=== PATIENT | male | born 1945 | race Caucasian/White ===

== ENCOUNTER → 2016-10-27 | Outpatient (CLI) | payer BC ==
[~2016-10-27] MED LIST: AMOX500C3 PO; ASMIN/60 INH; ASPI81TA28 PO; AZITTAB PO; CHOL1000 PO; COEN1CAP PO; CYAN10005 PO; FAMO20TA9 PO; FLVHFA110 INH; MISC1CAP60 PO; SELE1TAB5 PO; SIMV20TA2 PO
== END | disposition home or self-care (01) ==
LOC: C.LABSPEC 10:55
PROVIDERS: ATTEND Family Medicine
DX: J02.9 Acute pharyngitis, unspecified (principal)

== ENCOUNTER 2016-10-31 20:40 | Emergency (ER) | payer BC ==
[~2016-10-31] VITALS: Ht 177.8 cm; Wt 76.1 kg
[2016-10-31 20:54] VITALS: TEMP 36.7; Ht 177.8 cm; Wt 76.1 kg
[2016-10-31] MEDS ORDERED: CEFTRIAXONE SOD INJ 1 GM ADDVIAL IV STA (21:29)
[2016-10-31] MEDS ORDERED: KETOROLAC TROMETHAMINE 30 MG/ML VIAL IV STA (21:29)
[2016-10-31] MEDS ORDERED: SODIUM CHLORIDE 0.9% 500ML 500 ML IV STA (21:29)
[2016-10-31] MEDS ORDERED: HYDROCODONE/HOMATROPINE SYRUP 5MG/1.5MG 5ML UDP PO STA (21:42)
[2016-10-31 21:51] LABS: BASO % 0.3 %; BASO ABS # 0.03 K/uL (0-0.2); COMPLETE YES; EOS % 1.6 %; HEMATOCRIT 45.4 % (42-52); IG% 0.3 %; LYMPH % 26.7 %; MEAN CELL VOLUME 90.1 fL (80-100); MEAN CORPUSCULAR HEMOGLOBIN 29.8 pg (25-34); MEAN PLATELET VOLUME 8.5 fL (7.4-10.4); MONO % 7.6 %; NEUT % 63.5 %; PLATELET COUNT 247 K/uL (130-400); RED BLOOD COUNT 5.04 M/uL (4.7-6.1); WHITE BLOOD COUNT 10.12 K/uL (4.8-10.8)
[2016-10-31 22:11] LABS: ALT/SGPT 27 U/L (12-78); BLOOD UREA NITROGEN 15 mg/dl (7-18); BUN/CREATININE RATIO 13.8 (10-20); CALCIUM 9.2 mg/dl (8.5-10.1); CARBON DIOXIDE 30 mmol/L (21-32); CHLORIDE 106 mmol/L (98-107); GLUCOSE 88 mg/dl (70-99); POTASSIUM 4.1 mmol/L (3.5-5.1); SODIUM 140 mmol/L (136-145)
[2016-10-31 22:14] LABS: ALKALINE PHOSPHATASE 94 U/L (45-117); AST/SGOT 18 U/L (15-37)
[2016-10-31 22:20] LABS: URINE APPEARANCE CLEAR (CLEAR); URINE BILIRUBIN NEG (NEG); URINE COLOR YELLOW; URINE NITRITE NEG (NEG); URINE PH 5.5 (4.5-7.5); URINE SPECIFIC GRAVITY 1.012 (1.000-1.030); UROBILINOGEN NEG (NEG)
[2016-10-31] MEDS ORDERED: SIMV20TA2 PO (22:20)
--- NOTE | 2016-10-31 22:21 | DIAGNOSTIC IMAGING REPORT ---
CHEST ONE VIEW PORTABLE CLINICAL HISTORY: Pt c/o wheezing dyspnea COMPARISON STUDY: No previous studies for comparison. FINDINGS: The bones soft tissues and hemidiaphragms are normal. The cardiomediastinal silhouette is normal. The lungs are clear. The pulmonary vasculature is normal. IMPRESSION: Negative chest. The above report was generated using voice recognition software. It may contain grammatical, syntax or spelling errors. Electronically signed by: Brandan Gurrola M.D. 10/31/2016 10:19 PM Dictated Date/Time: 10/31/2016 10:19 PM
[2016-10-31] MEDS ORDERED: ASMIN/60 INH (22:22)
[2016-10-31] MEDS ORDERED: FLVHFA110 INH (22:22)
[2016-10-31] MEDS ORDERED: ASPI81TA28 PO (22:23)
[2016-10-31] MEDS ORDERED: SELE1TAB5 PO (22:28)
[2016-10-31] MEDS ORDERED: MISC1CAP60 PO (22:28)
[2016-10-31] MEDS ORDERED: COEN1CAP PO (22:28)
[2016-10-31] MEDS ORDERED: CHOL1000 PO (22:28)
[2016-10-31] MEDS ORDERED: FAMO20TA9 PO (22:28)
[2016-10-31] MEDS ORDERED: CYAN10005 PO (22:28)
--- NOTE | 2016-10-31 22:36 | EMERGENCY ROOM VISIT NOTE ---
History Report prepared by Po: Lien Mart Under the Supervision of: Dr. Jose Hardy M.D. First contact with patient: 21:06 Chief Complaint: ILLNESS Stated Complaint: SORE THROAT, FATIGUE, STIFF NECK, FEVER, NAUSEA History of Present Illness The patient is a 71 year old male who presents to the Emergency Room with complaints of an episode of an illness starting 6 days ago. The patient reports that he went to the doctors four days ago and was prescribed an antibiotic for possible strep throat. The patient states that his strep test came back negative. He reports that he came to the ED for some relief because it appears to be worsening. The patient complains of a sorethroat, fatigue, neck pain, loss of appetite, intermittent nausea, clear rhinorrhea and weakness. The patient denies sinus congestion, chest congestion, abdominal pain, and rashes. He notes he is not in the [place] often, but does have a dog. He reports that currently he is not having difficulty swallowing, but has in the past. The patient currently rates his pain as a 2.5/10 in severity. Source of History: patient Onset: 6 days ago Position: other (global) Symptom Intensity: 2.5/10 Quality: other (global) Timing: other (episode) Associated Symptoms: + sorethroat, + neck pain, + nausea, + fatigue, + weakness, No abdominal pain, No rash Note: The patient complains of loss of appetite, difficulty swallowing, and rhinorrhea. The patient denies sinus congestion and chest congestion. Review of Systems See HPI for pertinent positives & negatives. A total of 10 systems reviewed and were otherwise negative. Past Medical & Surgical Medical Problems: (1) Asthma Surgical Problems: (1) Amputation toe Family History Cancer Social History Smoking Status: Former Smoker Smokeless Tobacco Use: No Alcohol Use: none Marital Status: Housing Status: lives with significant other Current/Historical Medications Scheduled Amoxicillin (Amoxil), 500 MG PO TID Aspirin (Aspirin Ec), 81 MG PO DAILY Azithromycin (Zithromax Z-Darshan), 1 PKT PO UD Cholecalciferol (Vitamin D3), 1,000 UNITS PO DAILY Coenzyme Q10 (Ubidecarenone) (Co Q10), Unknown Dose PO DAILY Cyanocobalamin (Vitamin B-12), 1 TAB PO DAILY Famotidine (Pepcid), 20 MG PO DAILY Fluticasone Propionate (Flovent Hfa), 2 PUFFS INH DAILY Misc Natural Products (Saw [place]), 1 CAP PO DAILY Mometasone Furoate (Asmanex Twisthaler 60 Met), 1 PUFF INH DAILY Selenium-Yeast (Selenium), 1 TAB PO DAILY Simvastatin (Zocor), 20 MG PO DAILY Allergies Coded Allergies: No Known Allergies (Unverified , 10/31/16) Physical Exam Vital Signs Date Time Temp Pulse Resp B/P (MAP) Pulse Ox O2 Delivery O2 Flow Rate FiO2 10/31/16 23:43 60 16 133/64 97 10/31/16 22:55 59 16 138/80 97 Room Air 10/31/16 22:01 60 10/31/16 21:41 Room Air 10/31/16 20:54 36.7 77 18 135/85 96 Room Air Physical Exam GENERAL: Patient is a healthy-appearing well-nourished HEAD: Normocephalic atraumatic EYES: Ocular movements intact pupils equal and react to light OROPHARYNX mucous membranes are moist no exudates present no erythema or edema present NECK: Supple no nuchal rigidity, no evidence of encephalitis or meningitis CHEST: Good equal expansion LUNGS: Slight wheezes at bases CARDIAC: Normal S1 and S2 ABDOMEN: Soft nontender no guarding BACK: No CVA tenderness EXTREMITIES: No pain upon palpation normal muscle strength in all groups no clubbing cyanosis or edema NEURO: Patient is following commands and answering questions appropriately. Alert and oriented x3 Cranial Nerves 2-12 grossly intact Medical Decision & Procedures ER Provider Diagnostic Interpretation: Radiology results as stated below per my review and radiologist interpretation: CHEST ONE VIEW PORTABLE CLINICAL HISTORY: Pt c/o wheezing dyspnea COMPARISON STUDY: No previous studies for comparison. FINDINGS: The bones soft tissues and hemidiaphragms are normal. The cardiomediastinal silhouette is normal. The lungs are clear. The pulmonary vasculature is normal. IMPRESSION: Negative chest. The above report was generated using voice recognition software. It may contain grammatical, syntax or spelling errors. Electronically signed by: Brandan Gurrola M.D. 10/31/2016 10:19 PM Dictated Date/Time: 10/31/2016 10:19 PM Laboratory Results 10/31/16 21:40 Red Blood Count 5.04, Mean Corpuscular Volume 90.1, Mean Corpuscular Hemoglobin 29.8, Mean Corpuscular Hemoglobin Concent 33.0, Mean Platelet Volume 8.5, Neutrophils (%) (Auto) 63.5, Lymphocytes (%) (Auto) 26.7, Monocytes (%) (Auto) 7.6, Eosinophils (%) (Auto) 1.6, Basophils (%) (Auto) 0.3, Neutrophils # (Auto) 6.43, Lymphocytes # (Auto) 2.70, Monocytes # (Auto) 0.77, Eosinophils # (Auto) 0.16, Basophils # (Auto) 0.03 10/31/16 21:40 Test 10/31/16 21:40 10/31/16 21:45 10/31/16 23:28 White Blood Count 10.12 K/uL (4.8-10.8) Red Blood Count 5.04 M/uL (4.7-6.1) Hemoglobin 15.0 g/dL (14.0-18.0) Hematocrit 45.4 % (42-52) Mean Corpuscular Volume 90.1 fL (80-100) Mean Corpuscular Hemoglobin 29.8 pg (25-34) Mean Corpuscular Hemoglobin Concent 33.0 g/dl (32-36) Platelet Count 247 K/uL (130-400) Mean Platelet Volume 8.5 fL (7.4-10.4) Neutrophils (%) (Auto) 63.5 % Lymphocytes (%) (Auto) 26.7 % Monocytes (%) (Auto) 7.6 % Eosinophils (%) (Auto) 1.6 % Basophils (%) (Auto) 0.3 % Neutrophils # (Auto) 6.43 K/uL (1.4-6.5) Lymphocytes # (Auto) 2.70 K/uL (1.2-3.4) Monocytes # (Auto) 0.77 K/uL (0.11-0.59) Eosinophils # (Auto) 0.16 K/uL (0-0.5) Basophils # (Auto) 0.03 K/uL (0-0.2) RDW Standard Deviation 40.9 fL (36.4-46.3) RDW Coefficient of Variation 12.4 % (11.5-14.5) Immature Granulocyte % (Auto) 0.3 % Immature Granulocyte # (Auto) 0.03 K/uL (0.00-0.02) Anion Gap 4.0 mmol/L (3-11) Est Creatinine Clear Calc Drug Dose 64.5 ml/min Estimated GFR () 78.4 Estimated GFR (Non- 67.7 BUN/Creatinine Ratio 13.8 (10-20) Calcium Level 9.2 mg/dl (8.5-10.1) Total Bilirubin 0.4 mg/dl (0.2-1) Direct Bilirubin < 0.1 mg/dl (0-0.2) Aspartate Amino Transf (AST/SGOT) 18 U/L (15-37) Alanine Aminotransferase (ALT/SGPT) 27 U/L (12-78) Alkaline Phosphatase 94 U/L (45-117) Total Creatine Kinase 96 U/L (39-308) Creatine Kinase MB 1.1 ng/ml (0.5-3.6) Troponin I < 0.015 ng/ml (0-0.045) Total Protein 7.7 gm/dl (6.4-8.2) Albumin 3.7 gm/dl (3.4-5.0) Lyme Disease IgG Antibody NEG (NEG) Lyme Disease IgM Antibody NEG (NEG) Monoscreen NEG (NEG) Urine Color YELLOW Urine Appearance CLEAR (CLEAR) Urine pH 5.5 (4.5-7.5) Urine Specific [place] 1.012 (1.000-1.030) Urine Protein NEG (NEG) Urine Glucose (UA) NEG (NEG) Urine Ketones NEG (NEG) Urine Occult Blood NEG (NEG) Urine Nitrite NEG (NEG) Urine Bilirubin NEG (NEG) Urine Urobilinogen NEG (NEG) Urine Leukocyte Esterase NEG (NEG) Influenza Type A (RT-PCR) Neg for Influ A (NEG) Influenza Type A Antigen Neg for Influ A (NEG) Influenza Type B Antigen Neg for Influ B (NEG) Influenza Type B (RT-PCR) Neg for Influ B (NEG) Creatine Kinase MB Ratio (0-3.0) Labs reviewed by ED physician. Medications Administered Medications (Trade) Dose Ordered Sig/Mary Route Start Time Stop Time Status Last Admin Dose Admin Ceftriaxone Sodium (Rocephin Inj) 1 gm NOW STAT IV 10/31/16 21:29 10/31/16 21:32 DC 10/31/16 21:40 1 GM Ketorolac Tromethamine (Toradol Inj) 30 mg NOW STAT IV 10/31/16 21:29 10/31/16 21:32 DC 10/31/16 21:41 30 MG Sodium Chloride 500 ml @ 999 mls/hr Q31M STAT IV 10/31/16 21:29 10/31/16 21:59 DC 10/31/16 21:40 999 MLS/HR Acetaminophen (Tylenol Tab) 1,000 mg NOW STAT PO 10/31/16 22:45 10/31/16 22:46 DC 10/31/16 23:11 1,000 MG Amoxicillin (Amoxil Cap) 1,000 mg NOW STAT PO 10/31/16 23:30 10/31/16 23:31 DC 10/31/16 23:30 1,000 MG ED Course 2122: Past medical records reviewed. The patient was evaluated in room C9. A complete history and physical examination was performed. 2128: Ordered NSS 500 ml @ 999 mls/hr IV, Toradol Inj 30 mg IV, Rocephin Inj 1 gm IV. 2: Ordered Hycodan Syrup 5 ml PO. 2245: Ordered Tylenol Tab 1000 mg PO. 2316: Upon reexamination the patient is resting comfortably. I discussed results and treatment plan with the patient. He verbalizes agreement and understanding. The patient is ready for discharge. 2330: Ordered Amoxil Cap 1000 mg PO. Medical Decision Medication Reconciliation: I attest that I have personally reviewed the patient' s current medication list Blood Pressure Screening: Patient was found to have normal blood pressure on screening and does not require follow up. Differential diagnosis: Etiologies such as viral syndrome, tonsillitis, streptococcal pharyngitis, mononucleosis, peritonsillar abscess, retropharyngeal abscess, otitis, pneumonia , influenza, as well as others were entertained. This is a 71-year-old male who presents emergency department complaining of a sore throat. The patient has been on a Z-Darshan without any improvement and he feels generally weaker. An IV was established, patient given normal saline bolus, Toradol. In addition the patient does not appear to have an elevation in his white blood cell count has a normal renal profile has a normal liver profile. His cardiac enzymes are also normal. He was given Rocephin in the emergency department. The patient has a negative Lyme titer and also has a negative mono test. I suggested that we try amoxicillin for pharyngitis/ sinusitis. Patient family were in agreement with the treatment plan. Impression Primary Impression: Pharyngitis Scribe Attestation The scribe's documentation has been prepared under my direction and personally reviewed by me in its entirety. I confirm that the note above accurately reflects all work, treatment, procedures, and medical decision making performed by me. Departure Information Dispostion Home / Self-Care Prescriptions Amoxicillin (AMOXIL) 500 Mg Cap 500 MG PO TID, #30 CAP Prov: Jose Hardy MD 10/31/16 Referrals Lokesh Barrera M.D. (PCP) Forms HOME CARE DOCUMENTATION FORM, IMPORTANT VISIT INFORMATION, WORK / SCHOOL INSTRUCTIONS Patient Instructions My [facility] Additional Instructions Increase fluids next 48 hours Take 600 mg Ibuprofen every 6 hours Take 1000 mg Tylenol every 6 hours Call for lab results Culture results are usually available in approx 48 hours You have been examined and treated today on an emergency basis only. This is not a substitute for, or an effort to provide, complete comprehensive medical care. It is impossible to recognize and treat all injuries or illnesses in a single emergency department visit. It is therefore important that you follow up closely with DR Barrera. Call as soon as possible for an appointment. Thank you for your time and consideration. I look forward to speaking with you again soon. Please don't hesitate to call us if you have any questions. Problem Qualifiers Primary Impression: Pharyngitis Pharyngitis/tonsillitis etiology: unspecified etiology Qualified Codes: J02.9 - Acute pharyngitis, unspecified
[2016-10-31 22:40] LABS: MANUAL MICROSCOPIC REQUIRED? NO; REVIEW REQ? NO
[2016-10-31] MEDS ORDERED: AZITTAB PO (22:44)
[2016-10-31] MEDS ORDERED: ACETAMINOPHEN 500 MG TAB PO STA (22:45)
[2016-10-31] MEDS ORDERED: AMOX500C3 PO (23:21)
[2016-10-31] MEDS ORDERED: AMOXICILLIN 250 MG CAP PO STA (23:30)
[2016-10-31] MEDS ORDERED: EMPTY 8 DRAM VIAL ONE (23:36)
[2016-10-31 23:38] LABS: LYME DISEASE AB IGG NEG (NEG); LYME DISEASE AB IGM NEG (NEG)
[2016-10-31 23:43] VITALS: BP 133/64; PULSE 60; O2SAT 97
[2016-10-31 23:52] LABS: CKMB/CK RATIO 1.1 (0-3.0)
[2016-11-01 00:27] LABS: INFLUENZA A PCR Neg for Influ A (NEG); INFLUENZA B PCR Neg for Influ B (NEG)
== END 2016-10-31 23:44 | disposition home or self-care (01) ==
LOC: C.EDB 20:41 → C.EDC 23:44
DX: J02.9 Acute pharyngitis, unspecified (principal); J45.909 Unspecified asthma, uncomplicated; Z89.429 Acquired absence of other toe(s), unspecified side; Z80.9 Family history of malignant neoplasm, unspecified; Z87.891 Personal history of nicotine dependence; Z79.82 Long term (current) use of aspirin; Z79.899 Other long term (current) drug therapy

== ENCOUNTER → 2016-11-05 | Outpatient (CLI) | payer BC ==
[2016-11-05 09:30] LABS: BASO % 0.4 %; BASO ABS # 0.03 K/uL (0-0.2); COMPLETE YES; EOS % 1.5 %; HEMATOCRIT 42.3 % (42-52); IG% 0.1 %; LYMPH % 28.2 %; LYMPH ABS # 2.23 K/uL (1.2-3.4); MEAN CELL VOLUME 88.1 fL (80-100); MEAN CORPUSCULAR HEMOGLOBIN 29.4 pg (25-34); MEAN CORPUSCULAR HGB CONC 33.3 g/dl (32-36); MEAN PLATELET VOLUME 8.6 fL (7.4-10.4); MONO % 7.5 %; NEUT % 62.3 %; PLATELET COUNT 305 K/uL (130-400); WHITE BLOOD COUNT 7.91 K/uL (4.8-10.8)
[2016-11-05 09:48] LABS: ALT/SGPT 35 U/L (12-78); BLOOD UREA NITROGEN 18 mg/dl (7-18); BUN/CREATININE RATIO 16.5 (10-20); CALCIUM 9.4 mg/dl (8.5-10.1); CARBON DIOXIDE 29 mmol/L (21-32); CHLORIDE 106 mmol/L (98-107); CHOLESTEROL 148 mg/dl (0-200); CHOLESTEROL/HDL RATIO 4.2; GLUCOSE 85 mg/dl (70-99); HDL CHOLESTEROL 35 mg/dl; LDL CHOLESTEROL CALCULATED 89 mg/dl; POTASSIUM 4.3 mmol/L (3.5-5.1); SODIUM 139 mmol/L (136-145); TRIGLYCERIDES 120 mg/dl (0-150); URIC ACID 6.1 mg/dl (2.6-7.2); VERY LOW DENSITY LIPOPROT CALC 24 mg/dl
[2016-11-05 09:57] LABS: ALKALINE PHOSPHATASE 92 U/L (45-117); AST/SGOT 16 U/L (15-37); THYROID STIMULATING HORMONE 0.969 uIu/ml (0.300-4.500); TOTAL IRON BINDING CAPACITY 295 mcg/dl (250-450)
[2016-11-05 10:18] LABS: ESTIMATED AVERAGE GLUCOSE 114 mg/dl; HA1C FLAG Normal (Normal)
== END | disposition home or self-care (01) ==
LOC: C.LAB 07:27
PROVIDERS: ATTEND Family Medicine
DX: R73.09 Other abnormal glucose (principal); E55.9 Vitamin D deficiency, unspecified; D51.9 Vitamin B12 deficiency anemia, unspecified; E78.9 Disorder of lipoprotein metabolism, unspecified; R53.83 Other fatigue; N40.0 Benign prostatic hyperplasia without lower urinary tract symptoms

== ENCOUNTER → 2016-11-17 | Outpatient (CLI) | payer BC ==
[~2016-11-17] MED LIST changes: -AMOX500C3 PO
--- NOTE | 2016-11-17 15:06 | ECHOCARDIOGRAM REPORT ---
*NOTICE TO RECEIVING LIBERTARIAN AGENCY This information is strictly Confidential and protected under [place] law. [place] law prohibits you from making any further disclosure of this information unless further disclosure is expressly permitted by the written consent of the person to whom it pertains or is authorized by law. A general authorization for the release of medical or other information is not sufficient for this purpose. Hospital accepts no responsibility if the information is made available to any other person, INCLUDING THE PATIENT. Interpretation Summary * Name: SILVA HOBBS Study Date: 11/17/2016 01:13 PM BP: 133/76 mmHg * Patient Location: [facility] HR: 52 * : 1945 (M/d/yyyy) Gender: Male Height: 70 in * Age: 71 yrs Ethnicity: CA Weight: 165 lb * Ordering Physician: Lokesh Barrera * Performed By: Roxann Du * * Reason For Study: NEW ONSET MURMUR * BSA: 1.9 m2 * -- Conclusions -- * 1. Normal LV size, mild concentric LVH with basal asymmetric septal hypertrophy (1.7 cm). * 2. Normal LV systolic function. LVEF 60-65%. No regional wall motion abnormalities. Grade I diastolic dysfunction. * 3. Normal RV size and function. * 4. Mitral valve systolic anterior motion (SANTOS) without significant LV outflow tract gradient. * 5. Mild mitral regurgitation. * 6. Trace TR. Normal estimated PA and RA pressures. * 7. Compared with prior study report on 04/22/2007: Asymmetric basal septal hypertrophy with SANTOS and mild MR is new. Procedure Details * A complete two-dimensional transthoracic echocardiogram was performed (2D, M-mode, Doppler and color flow Doppler). Left Ventricle * The left ventricle is grossly normal size. * There is mild concentric left ventricular hypertrophy. * There is moderate asymmetric left ventricular hypertrophy. * Ejection Fraction = 60-65%. * No regional wall motion abnormalities noted. Right Ventricle * The right ventricle is grossly normal size. * The right ventricular systolic function is normal as assessed by tricuspid annular plane systolic excursion (TAPSE) (normal >1.5 cm). Atria * The left atrial size is normal. * Borderline right atrial enlargement. * No ASD detected; PFO is not assessed. Mitral Valve * The mitral valve leaflets appear thickened, but open well. * There is systolic anterior motion of the mitral valve. * Mitral stenosis is absent. * There is mild mitral regurgitation. Tricuspid Valve * The tricuspid valve is not well visualized, but is grossly normal. * There is no tricuspid stenosis. * There is trace tricuspid regurgitation. Aortic Valve * The aortic valve opens well. * The aortic valve is trileaflet. * No hemodynamically significant valvular aortic stenosis. * There is no significant aortic regurgitation. Pulmonic Valve * The pulmonary valve is inadequately visualized, but the Doppler data is adequate for interpretation. * There is no pulmonic valvular stenosis. * Trace pulmonic valvular regurgitation. Great Vessels * The aortic root and proximal ascending aorta are normal sized. Pericardium/Pleural * There is no pericardial effusion. Great Vessels * Normal inferior vena cava size and collapsability with sniff indicates a normal right atrial pressure of 3 mmHg Left Ventricular Diastolic Function * Grade I diastolic dysfunction, (abnormal relaxation pattern). MMode 2D Measurements and Calculations IVSd 1.7 cm IVSs 2.3 cm LVIDd 3.8 cm LVIDs 2.6 cm LVPWd 1.1 cm LVPWs 2.0 cm IVS/LVPW 1.6 FS 32.9 % EDV(Teich) 62.5 ml ESV(Teich) 23.6 ml EF(Teich) 62.2 % EDV(cubed) 55.4 ml ESV(cubed) 16.7 ml EF(cubed) 69.8 % % IVS thick 35.2 % % LVPW thick 88.3 % LV mass(C)d 192.9 grams LV mass(C)dI 100.3 grams/m\S\2 LV mass(C)s 258.6 grams LV mass(C)sI 134.4 grams/m\S\2 CO(Teich) 2.0 l/min CI(Teich) 1.0 l/min/m\S\2 SV(Teich) 38.8 ml SI(Teich) 20.2 ml/m\S\2 CO(cubed) 2.0 l/min CI(cubed) 1.0 l/min/m\S\2 SV(cubed) 38.7 ml SI(cubed) 20.1 ml/m\S\2 ACS 1.5 cm LA dimension 3.6 cm asc Aorta Diam 3.6 cm LVOT diam 1.7 cm LVOT area 2.4 cm\S\2 LVAd ap4 26.1 cm\S\2 LVLd ap4 7.5 cm EDV(MOD-sp4) 75.0 ml LVAs ap4 14.5 cm\S\2 LVLs ap4 6.5 cm ESV(MOD-sp4) 27.0 ml EF(MOD-sp4) 64.0 % LVAd ap2 26.1 cm\S\2 LVLd ap2 7.7 cm EDV(MOD-sp2) 75.0 ml LVAs ap2 13.9 cm\S\2 LVLs ap2 5.9 cm ESV(MOD-sp2) 27.0 ml EF(MOD-sp2) 64.0 % CO(MOD-sp4) 2.4 l/min CI(MOD-sp4) 1.3 l/min/m\S\2 SV(MOD-sp4) 48.0 ml SI(MOD-sp4) 25.0 ml/m\S\2 CO(MOD-sp2) 2.4 l/min CI(MOD-sp2) 1.3 l/min/m\S\2 SV(MOD-sp2) 48.0 ml SI(MOD-sp2) 25.0 ml/m\S\2 Doppler Measurements and Calculations MV E max valerie 45.3 cm/sec MV A max valerie 57.7 cm/sec MV E/A 0.79 MV dec time 0.45 sec Ao V2 max 99.3 cm/sec Ao max PG 3.9 mmHg Ao max PG (full) 0.49 mmHg LEORA(V,A) 2.2 cm\S\2 LEORA(V,D) 2.2 cm\S\2 LV V1 max PG 3.4 mmHg LV V1 max 92.9 cm/sec MR max valerie 473.6 cm/sec MR max PG 89.7 mmHg PA V2 max 59.8 cm/sec PA max PG 1.4 mmHg PI end-d valerie 83.4 cm/sec TR max valerie 239.2 cm/sec
== END | disposition home or self-care (01) ==
LOC: C.CPL 12:48
PROVIDERS: ATTEND Family Medicine
DX: R01.1 Cardiac murmur, unspecified (principal)

== ENCOUNTER → 2017-11-09 | Outpatient (CLI) | payer BC ==
[2017-11-09 12:16] LABS: BASO % 0.6 %; BASO ABS # 0.04 K/uL (0-0.2); EOS % 1.6 %; HEMATOCRIT 44.4 % (42-52); IG# 0.01 K/uL (0.00-0.02); LYMPH % 36.5 %; LYMPH ABS # 2.26 K/uL (1.2-3.4); MEAN CELL VOLUME 88.1 fL (80-100); MEAN CORPUSCULAR HEMOGLOBIN 29.8 pg (25-34); MEAN CORPUSCULAR HGB CONC 33.8 g/dl (32-36); MEAN PLATELET VOLUME 9.1 fL (7.4-10.4); MONO % 6.5 %; NEUT % 54.6 %; NEUT ABS # 3.38 K/uL (1.4-6.5); PLATELET COUNT 233 K/uL (130-400); RED CELL DISTRIBUTION WIDTH CV 12.9 % (11.5-14.5); RED CELL DISTRIBUTION WIDTH SD 41.2 fL (36.4-46.3); WHITE BLOOD COUNT 6.19 K/uL (4.8-10.8)
[2017-11-09 12:55] LABS: HEMOGLOBIN A1C 5.6 % (4.5-5.6)
[2017-11-09 13:00] LABS: ALBUMIN 4.2 gm/dl (3.4-5.0); ALKALINE PHOSPHATASE 68 U/L (45-117); ALT/SGPT 42 U/L (12-78); AST/SGOT 24 U/L (15-37); BLOOD UREA NITROGEN 13 mg/dl (7-18); CALCIUM 9.1 mg/dl (8.5-10.1); CARBON DIOXIDE 28 mmol/L (21-32); CHOLESTEROL 184 mg/dl (0-200); CREATININE 1.05 mg/dl (0.60-1.40); GLUCOSE 79 mg/dl (70-99); LDL CHOLESTEROL CALCULATED 107 mg/dl; POTASSIUM 4.6 mmol/L (3.5-5.1); SODIUM 139 mmol/L (136-145); TOTAL PROTEIN 7.4 gm/dl (6.4-8.2); TRANSFERRIN 291 mg/dl (200-360); URIC ACID 6.6 mg/dl (2.6-7.2)
== END | disposition home or self-care (01) ==
LOC: C.LAB 09:34
PROVIDERS: ATTEND Family Medicine
DX: R73.09 Other abnormal glucose (principal); E55.9 Vitamin D deficiency, unspecified; D51.9 Vitamin B12 deficiency anemia, unspecified; E78.9 Disorder of lipoprotein metabolism, unspecified; R53.83 Other fatigue

== ENCOUNTER → 2017-12-02 | Outpatient (CLI) | payer BC ==
--- NOTE | 2017-12-02 17:39 | ECHOCARDIOGRAM REPORT ---
*NOTICE TO RECEIVING REPUBLICAN AGENCY This information is strictly Confidential and protected under [place] law. [place] law prohibits you from making any further disclosure of this information unless further disclosure is expressly permitted by the written consent of the person to whom it pertains or is authorized by law. A general authorization for the release of medical or other information is not sufficient for this purpose. Hospital accepts no responsibility if the information is made available to any other person, INCLUDING THE PATIENT. Interpretation Summary * Name: SILVA HOBBS Study Date: 12/02/2017 01:21 PM BP: 153/74 mmHg * Patient Location: [facility] HR: 55 * : 1945 (M/d/yyyy) Gender: Male Height: 70 in * Age: 72 yrs Ethnicity: CA Weight: 165 lb * Ordering Physician: Lokesh Barrera * Referring Physician: Lokesh Barrera * Performed By: Princess Rogers RDCS * * Reason For Study: Neoplasm, shortness of breath * BSA: 1.9 m2 * -- Conclusions -- * Left ventricular systolic function is normal. * Grade I diastolic dysfunction, (abnormal relaxation pattern). * Right ventricular systolic pressure is normal. * Compared to study from 11/17/2016, there is no evidence of systolic anterior motion of the mitral valve. Otherwise unchanged. Procedure Details * A complete two-dimensional transthoracic echocardiogram was performed (2D, M-mode, Doppler and color flow Doppler). Left Ventricle * The left ventricle is normal in size. * There is normal left ventricular wall thickness. * Focal thickening of the basal septum with no evidence of left ventricular outflow obstruction. * Ejection Fraction = 60-65%. * Left ventricular systolic function is normal. * Grade I diastolic dysfunction, (abnormal relaxation pattern). * The left ventricular wall motion is normal. Right Ventricle * The right ventricle is grossly normal size. * The right ventricular systolic function is normal. * The right ventricular systolic function is normal as assessed by tricuspid annular plane systolic excursion (TAPSE) (normal >1.5 cm). Atria * The left atrial size is normal. * Right atrial size is normal. Mitral Valve * The mitral valve is grossly normal. * There is trace mitral regurgitation. Tricuspid Valve * The tricuspid valve is not well visualized, but is grossly normal. * There is trace tricuspid regurgitation. * Right ventricular systolic pressure is normal. Aortic Valve * The aortic valve is normal in structure and function. * The aortic valve is trileaflet. * Aortic stenosis is absent. * There is no significant aortic regurgitation. Pulmonic Valve * The pulmonic valve is not well seen, but is grossly normal. * Trace pulmonic valvular regurgitation. Great Vessels * The aortic root is normal size. Pericardium/Pleural * There is no pericardial effusion. MMode 2D Measurements and Calculations IVSd 1.2 cm LVIDd 3.8 cm LVIDs 2.4 cm LVPWd 1.1 cm IVS/LVPW 1.0 FS 36.4 % EDV(Teich) 62.6 ml ESV(Teich) 20.8 ml EF(Teich) 66.8 % EDV(cubed) 55.6 ml ESV(cubed) 14.3 ml EF(cubed) 74.2 % LV mass(C)d 142.8 grams LV mass(C)dI 74.3 grams/m\S\2 SV(Teich) 41.8 ml SI(Teich) 21.8 ml/m\S\2 SV(cubed) 41.3 ml SI(cubed) 21.5 ml/m\S\2 Ao root diam 3.7 cm Ao root area 10.6 cm\S\2 ACS 1.5 cm LA dimension 2.9 cm asc Aorta Diam 3.1 cm LA/Ao 0.79 LVOT diam 2.0 cm LVOT area 3.2 cm\S\2 LVAd ap4 24.3 cm\S\2 LVLd ap4 7.4 cm EDV(MOD-sp4) 64.6 ml EDV(sp4-el) 67.7 ml LVAs ap4 15.3 cm\S\2 LVLs ap4 7.4 cm ESV(MOD-sp4) 26.5 ml ESV(sp4-el) 27.0 ml EF(MOD-sp4) 58.9 % EF(sp4-el) 60.1 % LVAd ap2 22.0 cm\S\2 LVLd ap2 8.1 cm EDV(MOD-sp2) 51.4 ml EDV(sp2-el) 50.6 ml LVAs ap2 11.6 cm\S\2 LVLs ap2 6.3 cm ESV(MOD-sp2) 21.3 ml ESV(sp2-el) 18.3 ml EF(MOD-sp2) 58.5 % EF(sp2-el) 63.8 % LVLd %diff 8.6 % EDV(MOD-bp) 59.3 ml LVLs %diff -18.06 % ESV(MOD-bp) 25.0 ml EF(MOD-bp) 57.9 % SV(MOD-sp4) 38.1 ml SI(MOD-sp4) 19.8 ml/m\S\2 SV(MOD-sp2) 30.1 ml SI(MOD-sp2) 15.6 ml/m\S\2 SV(MOD-bp) 34.4 ml SI(MOD-bp) 17.9 ml/m\S\2 SV(sp4-el) 40.7 ml SI(sp4-el) 21.1 ml/m\S\2 SV(sp2-el) 32.3 ml SI(sp2-el) 16.8 ml/m\S\2 Doppler Measurements and Calculations MV E max valerie 41.5 cm/sec MV A max valerie 59.9 cm/sec MV E/A 0.69 MV dec time 0.44 sec Ao V2 max 108.3 cm/sec Ao max PG 4.7 mmHg Ao max PG (full) -0.54 mmHg LEORA(V,A) 3.4 cm\S\2 LEORA(V,D) 3.4 cm\S\2 LV V1 max PG 5.2 mmHg LV V1 max 114.4 cm/sec PA V2 max 85.4 cm/sec PA max PG 2.9 mmHg PA acc slope 417.7 cm/sec\S\2 PA acc time 0.13 sec PI max valerie 194.1 cm/sec PI max PG 15.1 mmHg PI dec slope 155.6 cm/sec\S\2 PI P1/2t 365.4 msec TR max valerie 215.4 cm/sec PA pr(Accel) 18.6 mmHg
== END | disposition home or self-care (01) ==
LOC: C.CPL 13:14
PROVIDERS: ATTEND Family Medicine
DX: R06.02 Shortness of breath (principal)